=== PATIENT | female | born 1945 | race Caucasian/White ===

== ENCOUNTER 2017-03-19 18:33 | Emergency (ER) | payer MEDICAID ==
[2017-03-19 23:14] LABS: URINE PH (Dip) POC 5.5 (5.0-8.5)
[2017-03-19 23:14] LABS: URINE BLOOD (Dip) POC Negative (NEGATIVE); URINE GLUCOSE (Dip) POC Negative (NEGATIVE); URINE KETONES (Dip) POC Negative (NEGATIVE); URINE LEUKOCYTE EST (Dip) POC Negative (NEGATIVE); URINE NITRITE (Dip) POC Negative (NEGATIVE); URINE TOTAL PROTEIN POC Negative (NEGATIVE)
[2017-03-19 23:48] LABS: ADD MAN DIFF? NO
[2017-03-19 23:55] LABS: WHITE BLOOD COUNT 8.3 10^3/ul (4.8-10.8)
[2017-03-19 23:55] LABS: BASOPHIL # 0.1 10^3/ul (0.0-0.1); BASOPHILS % 0.7 % (0.0-2.0); EOSINOPHILS # 0.2 10^3/ul (0.0-0.5); LYMPHOCYTES # 3.5 10^3/ul (0.8-2.9); LYMPHOCYTES % 41.6 % (15.0-51.0); MEAN CORPUSCULAR HEMOGLOBIN 30.6 pg (29.0-33.0); MEAN CORPUSCULAR HGB CONC 34.2 g/dl (32.0-37.0); MEAN CORPUSCULAR VOLUME 89.4 fl (82.0-101.0); MEAN PLATELET VOLUME 10.9 fl (7.4-10.4); MONOCYTE # 0.7 10^3/ul (0.3-0.9); MONOCYTES % 8.3 % (0.0-11.0); NEUTROPHIL # 3.9 10^3/ul (1.6-7.5); PLATELET COUNT 267 10^3/UL (140-415); RED BLOOD COUNT 4.25 10^6/ul (4.20-5.40); RED CELL DISTRIBUTION WIDTH 13.1 % (11.5-14.5)
[2017-03-20 00:13] LABS: ADD UMIC NO; UR ASCORBIC ACID 40 mg/dL (NEGATIVE); UR BACTERIA FEW /HPF (NONE SEEN); UR BILIRUBIN (Dip) NEGATIVE (NEGATIVE); UR BLOOD (Dip) NEGATIVE (NEGATIVE); UR CLARITY SLIGHTLY CLOUDY (CLEAR); UR COLOR YELLOW (YELLOW); UR GLUCOSE (Dip) NEGATIVE (NEGATIVE); UR KETONES (Dip) NEGATIVE (NEGATIVE); UR LEUKOCYTE ESTERASE (Dip) NEGATIVE Leu/ul (NEGATIVE); UR MUCUS FEW /HPF (NONE SEEN); UR NITRITE (Dip) NEGATIVE (NEGATIVE); UR RBC 0 /HPF (0-5); UR SPECIFIC GRAVITY (Dip) 1.023 (1.003-1.030); UR SQUAMOUS EPITHELIAL CELL FEW /HPF (FEW); UR TOTAL PROTEIN (Dip) NEGATIVE (NEGATIVE); UR UROBILINOGEN (Dip) NEGATIVE (NEGATIVE); UR WBC 3 /HPF (0-5)
[2017-03-20 00:21] LABS: ANION GAP 19 (8-16); BLOOD UREA NITROGEN 19 mg/dl (7-20); CALCIUM 9.6 mg/dl (8.4-10.2); CARBON DIOXIDE 25 mmol/L (21-31); CHLORIDE 104 mmol/L (97-110); CREATININE 0.88 mg/dl (0.44-1.00); GLUCOSE 109 mg/dl (70-220); POTASSIUM 4.3 mmol/L (3.5-5.1); SODIUM 144 mmol/L (135-144)
[2017-03-20 00:34] LABS: TROPONIN-I < 0.012 ng/ml (0.00-0.12)
[2017-03-20 00:42] LABS: INR 0.89; PROTIME 12.1 Sec (11.9-14.9); PT RATIO 0.9
[2017-03-20] MEDS: MECLIZINE 12.5 MG TAB PO (01:39)
== END 2017-03-20 02:20 | disposition home or self-care (01) ==
LOC: E/R 18:33
DX: R42 Dizziness and giddiness (principal); I10 Essential (primary) hypertension; J45.909 Unspecified asthma, uncomplicated; J44.9 Chronic obstructive pulmonary disease, unspecified; R55 Syncope and collapse; Z79.82 Long term (current) use of aspirin
CPT/HCPCS: 36415; 70450; 71010; 80048; 81001; 81003; 84484; 85025; 85610; 93005; 99285-25

== ENCOUNTER 2017-03-27 08:58 | Emergency (ER) | payer MEDICAID ==
[2017-03-27] MEDS: predniSONE 20 MG TAB PO (10:32)
[2017-03-27] MEDS: IPRATROPIUM (NEB) 0.5 MG/2.5 ML AMP HHN ×2 (10:35→12:37)
[2017-03-27] MEDS: ALBUTEROL 0.083% (NEB) 2.5 MG/3 ML AMP HHN ×2 (10:35→12:37)
== END 2017-03-27 13:00 | disposition home or self-care (01) ==
LOC: FTE 08:58
DX: J45.909 Unspecified asthma, uncomplicated (principal); J06.9 Acute upper respiratory infection, unspecified; I10 Essential (primary) hypertension; Z79.82 Long term (current) use of aspirin
CPT/HCPCS: 71045; 94640; 94664; 99284-25

== ENCOUNTER 2018-05-30 04:36 | Observation (INO) | payer MEDICAID ==
[2018-05-30 07:04] LABS: ADD MAN DIFF? NO
[2018-05-30] MEDS: NITROGLYCERIN (SL) 0.4 MG TAB SL (07:05)
[2018-05-30] MEDS: ASPIRIN 325 MG TAB PO (07:05)
[2018-05-30 07:06] LABS: WHITE BLOOD COUNT 6.7 10^3/ul (4.8-10.8)
[2018-05-30 07:06] LABS: BASOPHILS % 0.6 % (0.0-2.0); EOSINOPHILS # 0.1 10^3/ul (0.0-0.5); EOSINOPHILS % 2.1 % (0.0-7.0); HEMATOCRIT 39.2 % (37.0-47.0); HEMOGLOBIN 13.1 g/dl (12.0-16.0); LYMPHOCYTES # 2.8 10^3/ul (0.8-2.9); LYMPHOCYTES % 41.4 % (15.0-51.0); MEAN CORPUSCULAR HEMOGLOBIN 30.3 pg (29.0-33.0); MEAN CORPUSCULAR HGB CONC 33.4 g/dl (32.0-37.0); MEAN CORPUSCULAR VOLUME 90.7 fl (82.0-101.0); MONOCYTE # 0.6 10^3/ul (0.3-0.9); MONOCYTES % 8.2 % (0.0-11.0); NEUTROPHIL # 3.2 10^3/ul (1.6-7.5); NEUTROPHILS % 47.4 % (39.0-77.0); PLATELET COUNT 246 10^3/UL (140-415); RED BLOOD COUNT 4.32 10^6/ul (4.20-5.40); RED CELL DISTRIBUTION WIDTH 12.7 % (11.5-14.5)
[2018-05-30 07:21] LABS: ALANINE AMINOTRANSFERASE 25 IU/L (13-69); ALBUMIN 3.9 g/dl (3.3-4.9); ALBUMIN/GLOBULIN RATIO 1.21; ALKALINE PHOSPHATASE 104 IU/L (42-121); ANION GAP 8 (5-13); ASPARTATE AMINO TRANSFERASE 24 IU/L (15-46); BILIRUBIN,INDIRECT 0.1 mg/dl (0-1.1); BILIRUBIN,TOTAL 0.1 mg/dl (0.2-1.3); BLOOD UREA NITROGEN 15 mg/dl (7-20); CALCIUM 9.3 mg/dl (8.4-10.2); CARBON DIOXIDE 30 mmol/L (21-31); CHLORIDE 105 mmol/L (97-110); CHOL/HDL RATIO 8.3 RATIO; CHOLESTEROL 308 mg/dl (100-200); CREATININE 0.79 mg/dl (0.44-1.00); GLUCOSE 122 mg/dl (70-220); HDL CHOLESTEROL 37 mg/dl (33-92); POTASSIUM 4.6 mmol/L (3.5-5.1); SODIUM 143 mmol/L (135-144); TOTAL PROTEIN 7.1 g/dl (6.1-8.1)
[2018-05-30 07:26] LABS: INR 0.85; PROTIME 11.7 Sec (11.9-14.9); PT RATIO 0.9
[2018-05-30 07:27] LABS: PARTIAL THROMBOPLASTIN TIME 28.5 Sec (23.0-35.0)
[2018-05-30 07:29] LABS: LDL CHOLESTEROL,CALCULATED 150 mg/dl; TRIGLYCERIDES 604 mg/dl (0-149)
[2018-05-30 07:31] LABS: B-TYPE NATRIURETIC PEPTIDE 257 PG/ML (0-125)
[2018-05-30 07:51] LABS: TROPONIN-I < 0.012 ng/ml (0.000-0.120)
[2018-05-30] MEDS ORDERED: ALBUTEROL 0.083% (NEB) 2.5 MG/3 ML AMP HHN (09:30)
[2018-05-30] MEDS ORDERED: morphine 2 MG INJ IV (09:30)
[2018-05-30] MEDS ORDERED: NACL 0.9% 3 ML SYG IV (09:30)
[2018-05-30] MEDS ORDERED: ACETAMINOPHEN 325 MG TAB PO (09:30)
[2018-05-30] MEDS ORDERED: ONDANSETRON 4 MG INJ IV ×2 (09:30)
[2018-05-30] MEDS ORDERED: NITROGLYCERIN (SL) 0.4 MG TAB SL (09:30)
[2018-05-30 09:47] LABS: HEMOGLOBIN A1C 6.2 % (0-5.9)
[2018-05-30] MEDS: hydrALAzine 20 MG INJ IV (09:52)
[2018-05-30] MEDS: LISINOPRIL 20 MG TAB PO (10:34)
[2018-05-30 13:40] LABS: CREATINE KINASE 58 IU/L (23-200)
[2018-05-30 13:52] LABS: CK INDEX 2.4; CK-MB 1.37 ng/ml (0.0-2.4); TROPONIN-I < 0.012 ng/ml (0.000-0.120)
[2018-05-30] MEDS: ACETAMINOPHEN 325 MG TAB PO (15:32)
[2018-05-30] MEDS ORDERED: traMADol 50 MG TAB PO (17:00)
[2018-05-30 19:40] LABS: CREATINE KINASE 50 IU/L (23-200)
[2018-05-30 19:53] LABS: CK INDEX 2.4; CK-MB 1.19 ng/ml (0.0-2.4); TROPONIN-I < 0.012 ng/ml (0.000-0.120)
[2018-05-30] MEDS: BUDESONIDE (NEB) 0.5MG/2ML AMP HHN (20:09)
[2018-05-30] MEDS: ATORVASTATIN 20 MG TAB PO (20:37)
[2018-05-30] MEDS: FISH OIL 1,000 MG CAP PO (20:37)
[2018-05-31] MEDS: PANTOPRAZOLE (EC) 40 MG TAB PO (06:01)
[2018-05-31 07:24] LABS: ADD MAN DIFF? NO
[2018-05-31 07:30] LABS: WHITE BLOOD COUNT 6.5 10^3/ul (4.8-10.8)
[2018-05-31 07:30] LABS: BASOPHIL # 0.1 10^3/ul (0.0-0.1); BASOPHILS % 0.8 % (0.0-2.0); EOSINOPHILS # 0.2 10^3/ul (0.0-0.5); EOSINOPHILS % 2.6 % (0.0-7.0); HEMATOCRIT 39.5 % (37.0-47.0); LYMPHOCYTES # 2.5 10^3/ul (0.8-2.9); LYMPHOCYTES % 39.2 % (15.0-51.0); MEAN CORPUSCULAR HEMOGLOBIN 29.6 pg (29.0-33.0); MEAN CORPUSCULAR HGB CONC 32.9 g/dl (32.0-37.0); MEAN PLATELET VOLUME 10.5 fl (7.4-10.4); MONOCYTE # 0.5 10^3/ul (0.3-0.9); MONOCYTES % 7.4 % (0.0-11.0); NEUTROPHIL # 3.2 10^3/ul (1.6-7.5); NEUTROPHILS % 49.7 % (39.0-77.0); PLATELET COUNT 255 10^3/UL (140-415); RED BLOOD COUNT 4.39 10^6/ul (4.20-5.40); RED CELL DISTRIBUTION WIDTH 12.8 % (11.5-14.5)
[2018-05-31 08:05] LABS: ANION GAP 9 (5-13); BLOOD UREA NITROGEN 14 mg/dl (7-20); CALCIUM 9.3 mg/dl (8.4-10.2); CARBON DIOXIDE 26 mmol/L (21-31); CHLORIDE 107 mmol/L (97-110); CREATININE 0.74 mg/dl (0.44-1.00); GLUCOSE 125 mg/dl (70-220); SODIUM 142 mmol/L (135-144)
[2018-05-31] MEDS: ENOXAPARIN 40 MG/0.4 ML SYG SC (08:29)
[2018-05-31] MEDS: AMLODIPINE 5 MG TAB PO (08:30)
[2018-05-31] MEDS: CHOLECALCIFEROL 1,000 UNIT TAB PO (08:30)
[2018-05-31] MEDS: ASPIRIN 81 MG TAB PO (08:30)
[2018-05-31] MEDS: LISINOPRIL 20 MG TAB PO (08:31)
[2018-05-31] MEDS: FISH OIL 1,000 MG CAP PO (08:31)
[2018-05-31] MEDS: ACETAMINOPHEN 325 MG TAB PO (11:22)
[2018-05-31] MEDS: BUDESONIDE (NEB) 0.5MG/2ML AMP HHN (13:30)
== END 2018-05-31 17:41 | disposition home or self-care (01) ==
LOC: E/R 04:36 → TEL 09:03
DX: R07.89 Other chest pain (principal); E78.1 Pure hyperglyceridemia; E78.5 Hyperlipidemia, unspecified; J45.909 Unspecified asthma, uncomplicated; I10 Essential (primary) hypertension; E78.00 Pure hypercholesterolemia, unspecified; K21.9 Gastro-esophageal reflux disease without esophagitis; Z79.82 Long term (current) use of aspirin
CPT/HCPCS: 36415; 71045; 80048; 80053; 80061; 82550; 82553; 83036; 83735; 83880; 84484; 85025; 85610; 85730; 93005; 93306; 94640; 94664; 99285-25; G0378

== ENCOUNTER 2018-10-14 12:12 | Inpatient (IN) | payer OTHER, MEDICAID ==
[2018-10-14] MEDS ORDERED: ACETAMINOPHEN 500 MG TAB PO (13:06)
[2018-10-14] MEDS ORDERED: HYDROmorphONE 0.5 MG/0.5 ML SYG IV (13:06)
[2018-10-14] MEDS ORDERED: ONDANSETRON 4 MG INJ IV ×2 (13:06→19:30)
[2018-10-14] MEDS ORDERED: SOD CHLORIDE 0.9% 1,000 ML IV (13:06)
[2018-10-14] MEDS: IPRATROPIUM (NEB) 0.5 MG/2.5 ML AMP INH (14:54)
[2018-10-14] MEDS: ALBUTEROL 0.5% (NEB) 2.5 MG/0.5 ML AMP INH ×2 (14:54→16:26)
[2018-10-14 15:03] LABS: ADD MAN DIFF? NO
[2018-10-14] MEDS: DEXAMETHASONE 10 MG/ML 1 ML INJ IV (15:03)
[2018-10-14] MEDS: MAGNESIUM SULFATE 2 GM/50 ML 50 ML IVPB (15:03)
[2018-10-14 15:06] LABS: WHITE BLOOD COUNT 8.9 10^3/ul (4.8-10.8)
[2018-10-14 15:06] LABS: BASOPHIL # 0.1 10^3/ul (0.0-0.1); BASOPHILS % 0.7 % (0.0-2.0); EOSINOPHILS # 0.5 10^3/ul (0.0-0.5); HEMOGLOBIN 13.6 g/dl (12.0-16.0); LYMPHOCYTES # 2.2 10^3/ul (0.8-2.9); LYMPHOCYTES % 24.6 % (15.0-51.0); MEAN CORPUSCULAR HEMOGLOBIN 30.4 pg (29.0-33.0); MEAN CORPUSCULAR VOLUME 89.3 fl (82.0-101.0); MEAN PLATELET VOLUME 9.9 fl (7.4-10.4); MONOCYTE # 0.5 10^3/ul (0.3-0.9); MONOCYTES % 5.6 % (0.0-11.0); NEUTROPHIL # 5.6 10^3/ul (1.6-7.5); NEUTROPHILS % 62.8 % (39.0-77.0); PLATELET COUNT 278 10^3/UL (140-415); RED BLOOD COUNT 4.48 10^6/ul (4.20-5.40); RED CELL DISTRIBUTION WIDTH 12.6 % (11.5-14.5)
[2018-10-14 15:31] LABS: ANION GAP 7 (5-13); BLOOD UREA NITROGEN 12 mg/dl (7-20); CALCIUM 9.3 mg/dl (8.4-10.2); CARBON DIOXIDE 28 mmol/L (21-31); CHLORIDE 105 mmol/L (97-110); CREATININE 0.78 mg/dl (0.44-1.00); GLUCOSE 161 mg/dl (70-220); POTASSIUM 4.2 mmol/L (3.5-5.1); SODIUM 140 mmol/L (135-144)
[2018-10-14 15:42] LABS: TROPONIN-I < 0.012 ng/ml (0.000-0.120)
[2018-10-14] MEDS ORDERED: NACL 0.9% 3 ML SYG IV (19:30)
[2018-10-14] MEDS: ATORVASTATIN 20 MG TAB PO (20:34)
[2018-10-14] MEDS: LEVOFLOXACIN 500 MG TAB PO (20:35)
[2018-10-14] MEDS: ALBUTEROL/IPRATROPIUM (NEB) 3 ML AMP HHN (21:11)
[2018-10-15] MEDS: ALBUTEROL/IPRATROPIUM (NEB) 3 ML AMP HHN ×6 (01:28→20:22)
[2018-10-15] MEDS: LEVOFLOXACIN 500 MG TAB PO (06:00)
[2018-10-15 07:00] LABS: HEMOGLOBIN A1C 6.2 % (0-5.9)
[2018-10-15] MEDS: predniSONE 20 MG TAB PO (09:06)
[2018-10-15] MEDS: AMLODIPINE 5 MG TAB PO (09:06)
[2018-10-15] MEDS: LISINOPRIL 20 MG TAB PO (09:06)
[2018-10-15] MEDS: ACETAMINOPHEN 325 MG TAB PO (09:08)
[2018-10-15] MEDS: ENOXAPARIN 30 MG/0.3 ML SYG SC (09:10)
[2018-10-15] MEDS: ATORVASTATIN 20 MG TAB PO (21:14)
[2018-10-15] MEDS: METHYLPREDNISOLONE 125 MG INJ IV (21:14)
[2018-10-15] MEDS: MAGNESIUM SULFATE 2 GM/50 ML 50 ML IVPB (21:15)
[2018-10-16] MEDS: ALBUTEROL/IPRATROPIUM (NEB) 3 ML AMP HHN ×6 (02:42→20:02)
[2018-10-16] MEDS: LEVOFLOXACIN 500 MG TAB PO (05:36)
[2018-10-16 05:49] LABS: ADD MAN DIFF? NO
[2018-10-16 05:58] LABS: BASOPHILS % 0.2 % (0.0-2.0); HEMATOCRIT 36.8 % (37.0-47.0); HEMOGLOBIN 12.3 g/dl (12.0-16.0); LYMPHOCYTES % 6.1 % (15.0-51.0); MEAN CORPUSCULAR HEMOGLOBIN 29.9 pg (29.0-33.0); MEAN CORPUSCULAR HGB CONC 33.4 g/dl (32.0-37.0); MEAN CORPUSCULAR VOLUME 89.5 fl (82.0-101.0); MEAN PLATELET VOLUME 10.8 fl (7.4-10.4); MONOCYTE # 0.3 10^3/ul (0.3-0.9); MONOCYTES % 1.7 % (0.0-11.0); NEUTROPHIL # 15.6 10^3/ul (1.6-7.5); NEUTROPHILS % 90.7 % (39.0-77.0); PLATELET COUNT 310 10^3/UL (140-415); RED BLOOD COUNT 4.11 10^6/ul (4.20-5.40); RED CELL DISTRIBUTION WIDTH 12.9 % (11.5-14.5)
[2018-10-16 05:58] LABS: WHITE BLOOD COUNT 17.2 10^3/ul (4.8-10.8)
[2018-10-16 06:21] LABS: MAGNESIUM 2.3 mg/dl (1.7-2.5)
[2018-10-16 06:21] LABS: PHOSPHORUS 2.8 mg/dl (2.5-4.9)
[2018-10-16 06:25] LABS: ALANINE AMINOTRANSFERASE 25 IU/L (13-69); ALBUMIN 3.6 g/dl (3.3-4.9); ALBUMIN/GLOBULIN RATIO 1.24; ALKALINE PHOSPHATASE 89 IU/L (42-121); ANION GAP 9 (5-13); ASPARTATE AMINO TRANSFERASE 19 IU/L (15-46); BILIRUBIN,INDIRECT 0.2 mg/dl (0-1.1); BILIRUBIN,TOTAL 0.2 mg/dl (0.2-1.3); BLOOD UREA NITROGEN 20 mg/dl (7-20); CARBON DIOXIDE 25 mmol/L (21-31); CHLORIDE 108 mmol/L (97-110); CREATININE 0.71 mg/dl (0.44-1.00); GLUCOSE 246 mg/dl (70-220); POTASSIUM 5.1 mmol/L (3.5-5.1); SODIUM 142 mmol/L (135-144); TOTAL PROTEIN 6.5 g/dl (6.1-8.1)
[2018-10-16 06:28] LABS: TROPONIN-I < 0.012 ng/ml (0.000-0.120)
[2018-10-16 06:50] LABS: THYROID STIMULATING HORMONE 0.639 MIU/L (0.465-4.680)
[2018-10-16] MEDS: LISINOPRIL 20 MG TAB PO (08:25)
[2018-10-16] MEDS: AMLODIPINE 5 MG TAB PO (08:25)
[2018-10-16] MEDS: predniSONE 20 MG TAB PO (08:25)
[2018-10-16] MEDS: ENOXAPARIN 40 MG/0.4 ML SYG SC (08:26)
[2018-10-16] MEDS: HYDROCODONE/APAP (5/325) TAB PO (19:56)
[2018-10-16] MEDS: ATORVASTATIN 20 MG TAB PO (21:45)
[2018-10-17] MEDS: ALBUTEROL/IPRATROPIUM (NEB) 3 ML AMP HHN ×6 (00:50→20:35)
[2018-10-17 05:16] LABS: ADD MAN DIFF? NO
[2018-10-17 05:22] LABS: WHITE BLOOD COUNT 15.4 10^3/ul (4.8-10.8)
[2018-10-17 05:22] LABS: BASOPHILS % 0.1 % (0.0-2.0); EOSINOPHILS % 0.1 % (0.0-7.0); HEMATOCRIT 37.3 % (37.0-47.0); HEMOGLOBIN 12.3 g/dl (12.0-16.0); LYMPHOCYTES # 2.5 10^3/ul (0.8-2.9); LYMPHOCYTES % 16.4 % (15.0-51.0); MEAN PLATELET VOLUME 10.6 fl (7.4-10.4); MONOCYTE # 0.7 10^3/ul (0.3-0.9); MONOCYTES % 4.8 % (0.0-11.0); NEUTROPHIL # 11.9 10^3/ul (1.6-7.5); NEUTROPHILS % 77.4 % (39.0-77.0); PLATELET COUNT 289 10^3/UL (140-415); RED CELL DISTRIBUTION WIDTH 13.5 % (11.5-14.5)
[2018-10-17 06:06] LABS: ANION GAP 6 (5-13); BLOOD UREA NITROGEN 19 mg/dl (7-20); CALCIUM 8.7 mg/dl (8.4-10.2); CARBON DIOXIDE 27 mmol/L (21-31); CHLORIDE 107 mmol/L (97-110); CREATININE 0.71 mg/dl (0.44-1.00); GLUCOSE 136 mg/dl (70-220); POTASSIUM 4.3 mmol/L (3.5-5.1); SODIUM 140 mmol/L (135-144)
[2018-10-17] MEDS: LEVOFLOXACIN 500 MG TAB PO (06:38)
[2018-10-17] MEDS: LISINOPRIL 20 MG TAB PO (08:33)
[2018-10-17] MEDS: AMLODIPINE 5 MG TAB PO (08:33)
[2018-10-17] MEDS: predniSONE 20 MG TAB PO (08:33)
[2018-10-17] MEDS: ENOXAPARIN 40 MG/0.4 ML SYG SC (08:35)
[2018-10-17] MEDS: HYDROCODONE/APAP (5/325) TAB PO ×2 (08:41→19:01)
[2018-10-17] MEDS: METHYLPREDNISOLONE 125 MG INJ IV (15:05)
[2018-10-17] MEDS: ATORVASTATIN 20 MG TAB PO (22:29)
[2018-10-18] MEDS: ALBUTEROL/IPRATROPIUM (NEB) 3 ML AMP HHN ×4 (00:31→13:36)
[2018-10-18] MEDS: LEVOFLOXACIN 500 MG TAB PO (05:33)
[2018-10-18] MEDS: predniSONE 20 MG TAB PO (09:11)
[2018-10-18] MEDS: AMLODIPINE 5 MG TAB PO (09:12)
[2018-10-18] MEDS: LISINOPRIL 20 MG TAB PO (09:12)
[2018-10-18] MEDS: ENOXAPARIN 40 MG/0.4 ML SYG SC (09:14)
[2018-10-18] MEDS: HYDROCODONE/APAP (5/325) TAB PO (15:11)
== END 2018-10-18 16:50 | disposition home or self-care (01) | DRG 203 ==
LOC: E/R 12:12 → 2NE 20:08
DX: J45.901 Unspecified asthma with (acute) exacerbation (principal); F32.9 Major depressive disorder, single episode, unspecified; I10 Essential (primary) hypertension; F41.9 Anxiety disorder, unspecified; J06.9 Acute upper respiratory infection, unspecified; J20.8 Acute bronchitis due to other specified organisms; R09.02 Hypoxemia; Z91.14 Patient's other noncompliance with medication regimen
CPT/HCPCS: 71045; 80048; 80053; 83036; 83735; 84100; 84443; 84484; 85025; 93005; 94640; 94644; 94645; 94664; 96365; 96366; 96375; 97161; 97167; 97530; 97535; 99285-25